=== PATIENT | male | born 1965 | race African-American/Black ===

== ENCOUNTER 2016-12-05 17:27 | Inpatient (IN) | payer OTHER ==
[2016-12-05] VITALS (14 sets, daily range): BP systolic 141–186; BP diastolic 92–118; PULSE 98–108; RESP 18–20; TEMP 97.8; O2SAT 97–99
[~2016-12-05] VITALS: Ht 180.3 cm; Wt 93.1 kg
[~2016-12-05 17:27] MED LIST: AMLO5 PO; Aspirin Chew PO; CARV12.5 PO; FURO1TAB62 PO; FURO20TA PO; LISI-515 PO; POTA-163 PO
--- NOTE | 2016-12-05 17:40 | PD ---
HPI Chief Complaint: Respiratory Symptoms Time Seen by Provider: 17:40 Travel History International Travel<30 days: No Contact w/Intl Traveler<30days: No Traveled to known affect area: No History of Present Illness HPI 51-year-old male with history of hypertension, crack cocaine abuse, cardiomegaly , presents to emergency department for evaluation of chest pain and worsening shortness of breath with ambulation. Patient states he cannot take 4 steps without having significant shortness of breath. Patient states that the pain comes and goes. It does not radiate anywhere. He denies a recent illnesses, fever, chills. Last time that he used cocaine was last evening. Nausea or vomiting. States he does have episodes of diaphoresis. Patient was recently hospitalized in October for elevated troponin and hypertensive urgency. He is noncompliant with medication, he has no other symptoms to report. PFSH Past Medical History Hx Anticoagulant Therapy: Yes (PT STATES DOES NOT TAKE EVERY DAY) Asthma: No Blood Disorders: No Heart Rhythm Problems: No Cancer: No Cardiovascular Problems: Yes High Cholesterol: No Chemotherapy: No Chest Pain: No Congestive Heart Failure: Yes COPD: Yes Cerebrovascular Accident: Yes (HX STROKE) Diabetes: Yes Diminished Hearing: No Endocrine: No Gastrointestinal Disorders: No Genitourinary: No Hypertension: Yes Immune Disorder: No Musculoskeletal: No Neurologic: No Psychiatric: Yes (DRUG ABUSE) Reproductive: No Respiratory: Yes Immunizations Current: No (UNKNOWN) Myocardial Infarction: No Radiation Therapy: No Past Surgical History AICD: No Arteriovenous Shunt: No Insulin Pump: No Joint Replacement: No Pacemaker: No Tonsillectomy: Yes Other Surgery: Yes (RIGHT WRIST FOR SPIDER BITE.) Social History Alcohol Use: Yes (4 LOCO LAST NIGHT) Tobacco Use: Yes (1/2 PPD) Substance Use: Yes (Cocaine and Marijuana ) Allergies-Medications (Allergen,Severity, Reaction): Coded Allergies: No Known Allergies (Verified , 10/17/16) Reported Meds & Prescriptions Reported Meds & Active Scripts Active Potassium Chloride ER (Potassium Chloride) 20 Meq Tab 20 Meq PO DAILY Furosemide 20 Mg Tab 20 Mg PO DAILY Lasix (Furosemide) 20 Mg Tab 20 Mg PO DAILY Lisinopril 20 Mg Tab 40 Mg PO DAILY 30 Days Coreg (Carvedilol) 12.5 Mg Tab 25 Mg PO Q12HR 30 Days [Aspirin Chew] 81 MG Chew 81 Mg PO DAILY 30 Days Norvasc (Amlodipine Besylate) 5 Mg Tab 5 Mg PO DAILY 30 Days Review of Systems Except as stated in HPI: all other systems reviewed are Neg Physical Exam Narrative GENERAL: Well-nourished male patient, lying in bed, no acute distress SKIN: Warm and dry. HEAD: Atraumatic. Normocephalic. EYES: Pupils equal and round. No scleral icterus. No injection or drainage. ENT: No nasal bleeding or discharge. Mucous membranes pink and moist. NECK: Trachea midline. No JVD. CARDIOVASCULAR: Elevated rate and rhythm. No murmur appreciated. RESPIRATORY: No accessory muscle use. Diminished. Breath sounds equal bilaterally. GASTROINTESTINAL: Abdomen soft, nondistended. Slight epigastric tenderness to palpation. Hepatic and splenic margins not palpable. MUSCULOSKELETAL: No obvious deformities. No clubbing. No cyanosis. No edema. NEUROLOGICAL: Awake and alert. No obvious cranial nerve deficits. Motor grossly within normal limits. Normal speech. PSYCHIATRIC: Appropriate mood and affect; insight and judgment normal. Data Data Last Documented VS Vital Signs Date Time Temp Pulse Resp B/P Pulse Ox O2 Delivery O2 Flow Rate FiO2 12/05/16 19:11 101 20 159/100 99 Room Air 12/05/16 17:32 97.8 Orders Electrocardiogram (12/05/16 17:35) B-Type Natriuretic Peptide (12/05/16 17:35) Ckmb (Isoenzyme) Profile (12/05/16 17:35) Complete Blood Count With Diff (12/05/16 17:35) Comprehensive Metabolic Panel (12/05/16 17:35) Magnesium (Mg) (12/05/16 17:35) Prothrombin Time / Inr (Pt) (12/05/16 17:35) Act Partial Throm Time (Ptt) (12/05/16 17:35) Troponin I (12/05/16 17:35) Lipase (12/05/16 17:35) Chest, Single Ap (12/05/16 17:35) Ecg Monitoring (12/05/16 17:35) Bilateral Bp Monitoring (12/05/16 17:35) Iv Access Insert/Monitor (12/05/16 17:35) Oximetry (12/05/16 17:35) Oxygen Administration (12/05/16 17:35) Aspirin Chew (Aspirin Chew) (12/05/16 17:45) Sodium Chloride 0.9% Flush (Ns Flush) (12/05/16 17:45) Sodium Chlor 0.9% 1000 Ml Inj (Ns 1000 M (12/05/16 17:45) Nitroglycerin 2% Oint (Nitroglycerin 2% (12/05/16 18:30) CKMB (12/05/16 17:40) CKMB% (12/05/16 17:40) Ct Pulmonary Angiogram (12/05/16 ) Iohexol 350 Inj (Omnipaque 350 Inj) (12/05/16 19:19) Furosemide Inj (Lasix Inj) (12/05/16 19:45) Nitroglycerin-Dextrose Inj (Nitroglyceri (12/05/16 19:45) Admit Order (Ed Use Only) (12/05/16 19:38) Consult Acetylene Burner (12/05/16 ) Labs Laboratory Tests Test 12/05/16 17:40 White Blood Count 9.5 TH/MM3 Red Blood Count 4.23 MIL/MM3 Hemoglobin 11.2 GM/DL Hematocrit 35.3 % Mean Corpuscular Volume 83.4 FL Mean Corpuscular Hemoglobin 26.6 PG Mean Corpuscular Hemoglobin 31.8 % Concent Red Cell Distribution Width 16.1 % Platelet Count 350 TH/MM3 Mean Platelet Volume 8.3 FL Neutrophils (%) (Auto) 76.5 % Lymphocytes (%) (Auto) 11.9 % Monocytes (%) (Auto) 9.3 % Eosinophils (%) (Auto) 1.4 % Basophils (%) (Auto) 0.9 % Neutrophils # (Auto) 7.3 TH/MM3 Lymphocytes # (Auto) 1.1 TH/MM3 Monocytes # (Auto) 0.9 TH/MM3 Eosinophils # (Auto) 0.1 TH/MM3 Basophils # (Auto) 0.1 TH/MM3 CBC Comment DIFF FINAL Differential Comment Prothrombin Time 11.8 SEC Prothromb Time International 1.1 RATIO Ratio Activated Partial 26.4 SEC Thromboplast Time Sodium Level 141 MEQ/L Potassium Level 4.3 MEQ/L Chloride Level 105 MEQ/L Carbon Dioxide Level 29.0 MEQ/L Anion Gap 7 MEQ/L Blood Urea Nitrogen 15 MG/DL Creatinine 1.37 MG/DL Estimat Glomerular Filtration 67 ML/MIN Rate Random Glucose 108 MG/DL Calcium Level 7.9 MG/DL Magnesium Level 2.2 MG/DL Total Bilirubin 0.9 MG/DL Aspartate Amino Transf 30 U/L (AST/SGOT) Alanine Aminotransferase 34 U/L (ALT/SGPT) Alkaline Phosphatase 87 U/L Total Creatine Kinase 626 U/L Creatine Kinase MB 10.1 NG/ML Creatine Kinase MB % 1.6 % Troponin I 0.34 NG/ML B-Type Natriuretic Peptide 1767 PG/ML Total Protein 5.8 GM/DL Albumin 2.4 GM/DL Lipase 60 U/L MDM Medical Decision Making Medical Screen Exam Complete: Yes Emergency Medical Condition: Yes Medical Record Reviewed: Yes Differential Diagnosis ACS versus vasospasm versus BNP versus pneumonia versus PE Narrative Course 51-year-old male presents to emergency department for evaluation. Patient appears without distress. Tachycardic and moderately hypertensive here in the emergency department. EKG is similar to recent. As reviewed by my attending. Patient is given aspirin and nitroglycerin paste here in the emergency department. Chest x-ray shows cardiomegaly without evidence of pulmonary edema or focal infiltrates. Laboratory Tests Test 12/05/16 17:40 White Blood Count 9.5 TH/MM3 Red Blood Count 4.23 MIL/MM3 Hemoglobin 11.2 GM/DL Hematocrit 35.3 % Mean Corpuscular Volume 83.4 FL Mean Corpuscular Hemoglobin 26.6 PG Mean Corpuscular Hemoglobin 31.8 % Concent Red Cell Distribution Width 16.1 % Platelet Count 350 TH/MM3 Mean Platelet Volume 8.3 FL Neutrophils (%) (Auto) 76.5 % Lymphocytes (%) (Auto) 11.9 % Monocytes (%) (Auto) 9.3 % Eosinophils (%) (Auto) 1.4 % Basophils (%) (Auto) 0.9 % Neutrophils # (Auto) 7.3 TH/MM3 Lymphocytes # (Auto) 1.1 TH/MM3 Monocytes # (Auto) 0.9 TH/MM3 Eosinophils # (Auto) 0.1 TH/MM3 Basophils # (Auto) 0.1 TH/MM3 CBC Comment DIFF FINAL Differential Comment Prothrombin Time 11.8 SEC Prothromb Time International 1.1 RATIO Ratio Activated Partial 26.4 SEC Thromboplast Time Sodium Level 141 MEQ/L Potassium Level 4.3 MEQ/L Chloride Level 105 MEQ/L Carbon Dioxide Level 29.0 MEQ/L Anion Gap 7 MEQ/L Blood Urea Nitrogen 15 MG/DL Creatinine 1.37 MG/DL Estimat Glomerular Filtration 67 ML/MIN Rate Random Glucose 108 MG/DL Calcium Level 7.9 MG/DL Magnesium Level 2.2 MG/DL Total Bilirubin 0.9 MG/DL Aspartate Amino Transf 30 U/L (AST/SGOT) Alanine Aminotransferase 34 U/L (ALT/SGPT) Alkaline Phosphatase 87 U/L Total Creatine Kinase 626 U/L Creatine Kinase MB 10.1 NG/ML Creatine Kinase MB % 1.6 % Troponin I 0.34 NG/ML B-Type Natriuretic Peptide 1767 PG/ML Total Protein 5.8 GM/DL Albumin 2.4 GM/DL Lipase 60 U/L Patient again has elevated troponin 0.34. BNP is 1767. Patient continues to have chest pain and short of breath. He also continues to be hypertensive. I discussed the patient with attending physician has also assessed him. She recommends nitroglycerin drip as well as Lasix. I have discussed the patient with resident physician director of recruitment and admissions. Patient will be admitted to the critical care unit. Diagnosis Primary Impression: Chest pain Qualified Code: R07.9 - Chest pain, unspecified type Additional Impressions: Elevated troponin CHF (congestive heart failure) Qualified Code: I50.9 - Acute on chronic congestive heart failure, unspecified congestive heart failure type Hypertensive urgency Cocaine abuse Admitting Information Admitting Physician Requests: Admit Condition: Stable Analia Lyons Dec 05, 2016 17:40
[2016-12-05] MEDS ORDERED: ASPIRIN 81 MG CHEW TAB PO ONE (17:45)
[2016-12-05] MEDS ORDERED: SODIUM CHLORIDE 0.9% FLUSH 5 ML FLUSH IVF PRN ×2 (17:45→21:30)
[2016-12-05] MEDS ORDERED: SODIUM CHLOR 0.9% 1000 ML INJ 1,000 ML IV ONE (17:45)
[2016-12-05 18:17] LABS: AUTOMATED NEUTROPHIL # 7.3 TH/MM3 (1.8-7.7); BASOPHIL # 0.1 TH/MM3 (0-0.2); BASOPHIL % 0.9 % (0.0-2.0); EOSINOPHIL # 0.1 TH/MM3 (0-0.4); EOSINOPHIL % 1.4 % (0.0-4.0); HEMATOCRIT 35.3 % (39.0-51.0); HEMO FLAGS DIFF FINAL; LYMPH % 11.9 % (9.0-44.0); LYMPHOCYTE # 1.1 TH/MM3 (1.0-4.8); MEAN CELL VOLUME 83.4 FL (80.0-100.0); MEAN CORPUSCULAR HEMOGLOBIN 26.6 PG (27.0-34.0); MEAN CORPUSCULAR HGB CONC 31.8 % (32.0-36.0); MONO % 9.3 % (0.0-8.0); NEUT % 76.5 % (16.0-70.0); PLATELET COUNT 350 TH/MM3 (150-450); RED BLOOD COUNT 4.23 MIL/MM3 (4.50-5.90); RED CELL DISTRIBUTION WIDTH 16.1 % (11.6-17.2); WHITE BLOOD COUNT 9.5 TH/MM3 (4.0-11.0)
[2016-12-05 18:24] LABS: APTT (PATIENT) 26.4 SEC (24.3-30.1); INTERNATIONAL NORMALIZED RATIO 1.1 RATIO; PROTHROMBIN TIME - PATIENT 11.8 SEC (9.8-11.6)
[2016-12-05] MEDS ORDERED: NITROGLYCERIN 2% OINT 1 GM PACKET TOPICAL ONE (18:30)
--- NOTE | 2016-12-05 18:34 | RADRPT ---
EXAM DATE/TIME: 12/05/2016 17:33 [facility] COMPARISON: CHEST SINGLE AP, October 11, 2016, 12:03. INDICATIONS : Chest pains. MEDICAL HISTORY : None. SURGICAL HISTORY : None. ENCOUNTER: Initial ACUITY: >1 year PAIN SCORE: 7/10 LOCATION: Left lower chest area. FINDINGS: The heart is enlarged with left ventricular configuration. The degree of cardiomegaly is stable from prior examination. The lungs are clear. No focal infiltrates seen. The central bronchopulmonary m arkings well delineated without evidence of peribronchial thickening. Both hemidiaphragms are well d elineated. No evidence pneumothorax. CONCLUSION: Compensated cardiomegaly without evidence of pulmonary edema or focal infiltrate. Toñito Kam MD on December 05, 2016 at 18:31 Board Certified Radiologist. This report was verified electronically.
[2016-12-05 18:35] LABS: ALT (GPT) 34 U/L (12-78); ANION GAP 7 MEQ/L (5-15); AST (GOT) 30 U/L (15-37); BLOOD UREA NITROGEN 15 MG/DL (7-18); CHLORIDE 105 MEQ/L (98-107); GLOMERULAR FILTRATION RATE 67 ML/MIN (>89); MAGNESIUM 2.2 MG/DL (1.5-2.5); POTASSIUM 4.3 MEQ/L (3.5-5.1); SODIUM (NA) 141 MEQ/L (136-145)
[2016-12-05 18:39] LABS: ALKALINE PHOSPHATASE 87 U/L (45-117); CREATINE KINASE 626 U/L (39-308); TOTAL BILIRUBIN ADULT 0.9 MG/DL (0.2-1.0)
[2016-12-05 18:51] LABS: CKMB 10.1 NG/ML (0.5-3.6)
[2016-12-05] MEDS ORDERED: IOHEXOL 350 MG/ML 10 ML VIAL (for RAD DIAG) IV ONE (19:19)
--- NOTE | 2016-12-05 19:41 | PD ---
Physical Exam Date Seen by Provider: Dec 05, 2016 Time Seen by Provider: 18:00 Narrative I, Dr. Reddy, have reviewed the advance practice practitioner's documentation and am in agreement, met with the patient face to face, made the diagnosis, and the medical decision making was done by me. *My assessment and Findings: Patient seen and evaluated with nurse practitioner , please see nurse practitioner note for more details. Patient is a cocaine user, previous history of poorly controlled hypertension, hypertensive emergency , here with chest pains, shortness of breath, and elevated blood pressure. EKG did not show any signs of acute ST-T changes but does show signs of LVH. Chest x-ray did not show signs of acute pulmonary edema but does show cardiomegaly. Nitroglycerin was given for chest pain and for blood pressure. Aspirin was given in the ER. His lab work returns showing significant elevation of BNP and Lasix was also given. On reevaluation, patient appears to be in mild respiratory distress. Pulmonary exam reveals decreased breath sounds at bases with no wheezes or crackles. Heart sounds S1, S2 with no gross murmurs or gallops. Laboratory Tests Test 12/05/16 17:40 Red Blood Count 4.23 MIL/MM3 (4.50-5.90) Hemoglobin 11.2 GM/DL (13.0-17.0) Hematocrit 35.3 % (39.0-51.0) Mean Corpuscular Hemoglobin 26.6 PG (27.0-34.0) Mean Corpuscular Hemoglobin 31.8 % Concent (32.0-36.0) Neutrophils (%) (Auto) 76.5 % (16.0-70.0) Monocytes (%) (Auto) 9.3 % (0.0-8.0) Prothrombin Time 11.8 SEC (9.8-11.6) Creatinine 1.37 MG/DL (0.60-1.30) Estimat Glomerular Filtration 67 ML/MIN (>89) Rate Random Glucose 108 MG/DL (74-106) Calcium Level 7.9 MG/DL (8.5-10.1) Total Creatine Kinase 626 U/L (39-308) Creatine Kinase MB 10.1 NG/ML (0.5-3.6) Troponin I 0.34 NG/ML (0.02-0.05) B-Type Natriuretic Peptide 1767 PG/ML (0-100) Total Protein 5.8 GM/DL (6.4-8.2) Albumin 2.4 GM/DL (3.4-5.0) Lipase 60 U/L (73-393) Last 24 hours Impressions Chest X-Ray 12/05/16 4555 Signed Impressions: Service Date/Time: Monday, December 05, 2016 17:33 - CONCLUSION: Compensated cardiomegaly without evidence of pulmonary edema or focal infiltrate. Toñito Kam MD At this point, case was discussed with family practice residents for admission. Nitroglycerin drip was initiated due to fairly elevated blood pressure and what appears to be a hypertensive emergency with heart failure symptoms and elevated troponins. Patient will be admitted to ICU. Risk Manager consult. Aggregate critical care time was 25 minutes. Time to perform other separately billable procedures was not included in the critical care time. My time did not include minutes spent treating any other patients simultaneously or on activities that did not directly contribute to the patient's treatment. The services I provided to this patient were to treat and/or prevent clinically significant deterioration that could result in: Worsening CHF, cardiopulmonary arrest, dysrhythmias, I provided critical care services requiring my management, as noted below: Chart data review, documentation time, medication orders and management, vital sign assessments/reviewing monitor data, ordering and reviewing lab tests, ordering and interpreting/reviewing x-rays and diagnostic studies, care of the patient and discussion of the patient with the admitting physicians. Data Data Last Documented VS Vital Signs Date Time Temp Pulse Resp B/P Pulse Ox O2 Delivery O2 Flow Rate FiO2 12/05/16 19:11 101 20 159/100 99 Room Air 12/05/16 17:32 97.8 Orders Electrocardiogram (12/05/16 17:35) B-Type Natriuretic Peptide (12/05/16 17:35) Ckmb (Isoenzyme) Profile (12/05/16 17:35) Complete Blood Count With Diff (12/05/16 17:35) Comprehensive Metabolic Panel (12/05/16 17:35) Magnesium (Mg) (12/05/16 17:35) Prothrombin Time / Inr (Pt) (12/05/16 17:35) Act Partial Throm Time (Ptt) (12/05/16 17:35) Troponin I (12/05/16 17:35) Lipase (12/05/16 17:35) Chest, Single Ap (12/05/16 17:35) Ecg Monitoring (12/05/16 17:35) Bilateral Bp Monitoring (12/05/16 17:35) Iv Access Insert/Monitor (12/05/16 17:35) Oximetry (12/05/16 17:35) Oxygen Administration (12/05/16 17:35) Aspirin Chew (Aspirin Chew) (12/05/16 17:45) Sodium Chloride 0.9% Flush (Ns Flush) (12/05/16 17:45) Sodium Chlor 0.9% 1000 Ml Inj (Ns 1000 M (12/05/16 17:45) Nitroglycerin 2% Oint (Nitroglycerin 2% (12/05/16 18:30) CKMB (12/05/16 17:40) CKMB% (12/05/16 17:40) Ct Pulmonary Angiogram (12/05/16 ) Iohexol 350 Inj (Omnipaque 350 Inj) (12/05/16 19:19) Furosemide Inj (Lasix Inj) (12/05/16 19:45) Nitroglycerin-Dextrose Inj (Nitroglyceri (12/05/16 19:45) Admit Order (Ed Use Only) (12/05/16 19:38) Consult Risk Manager (12/05/16 ) Labs Laboratory Tests Test 12/05/16 17:40 White Blood Count 9.5 TH/MM3 Red Blood Count 4.23 MIL/MM3 Hemoglobin 11.2 GM/DL Hematocrit 35.3 % Mean Corpuscular Volume 83.4 FL Mean Corpuscular Hemoglobin 26.6 PG Mean Corpuscular Hemoglobin 31.8 % Concent Red Cell Distribution Width 16.1 % Platelet Count 350 TH/MM3 Mean Platelet Volume 8.3 FL Neutrophils (%) (Auto) 76.5 % Lymphocytes (%) (Auto) 11.9 % Monocytes (%) (Auto) 9.3 % Eosinophils (%) (Auto) 1.4 % Basophils (%) (Auto) 0.9 % Neutrophils # (Auto) 7.3 TH/MM3 Lymphocytes # (Auto) 1.1 TH/MM3 Monocytes # (Auto) 0.9 TH/MM3 Eosinophils # (Auto) 0.1 TH/MM3 Basophils # (Auto) 0.1 TH/MM3 CBC Comment DIFF FINAL Differential Comment Prothrombin Time 11.8 SEC Prothromb Time International 1.1 RATIO Ratio Activated Partial 26.4 SEC Thromboplast Time Sodium Level 141 MEQ/L Potassium Level 4.3 MEQ/L Chloride Level 105 MEQ/L Carbon Dioxide Level 29.0 MEQ/L Anion Gap 7 MEQ/L Blood Urea Nitrogen 15 MG/DL Creatinine 1.37 MG/DL Estimat Glomerular Filtration 67 ML/MIN Rate Random Glucose 108 MG/DL Calcium Level 7.9 MG/DL Magnesium Level 2.2 MG/DL Total Bilirubin 0.9 MG/DL Aspartate Amino Transf 30 U/L (AST/SGOT) Alanine Aminotransferase 34 U/L (ALT/SGPT) Alkaline Phosphatase 87 U/L Total Creatine Kinase 626 U/L Creatine Kinase MB 10.1 NG/ML Creatine Kinase MB % 1.6 % Troponin I 0.34 NG/ML B-Type Natriuretic Peptide 1767 PG/ML Total Protein 5.8 GM/DL Albumin 2.4 GM/DL Lipase 60 U/L [facility] Medical Record Reviewed: Yes Supervised Visit with LIVIA: Yes Diagnosis Primary Impression: Hypertensive emergency Additional Impressions: CHF (congestive heart failure) Elevated troponin Admitting Information Admitting Physician Requests: Admit Condition: Stable Corona Reddy MD Dec 05, 2016 19:41
--- NOTE | 2016-12-05 19:43 | RADRPT ---
EXAM DATE/TIME: 12/05/2016 19:16 [facility] COMPARISON: CTA THORACIC ABDOMINAL AORTA W 3D RECON, October 16, 2015, 15:50. INDICATIONS : Short of breath with chest pressure. Recent cocaine use. IV CONTRAST: 99 cc Omnipaque 350 (iohexol) IV RADIATION DOSE: 18.32 CTDIvol (mGy) MEDICAL HISTORY : Congestive hearrt failure. Hypertension. Chronic obstructive pulmonary disease.CVA. Diabetes. SURGICAL HISTORY : Tonsillectomy. ENCOUNTER: Initial ACUITY: 1 week PAIN SCALE: 1/10 LOCATION: chest TECHNIQUE: Volumetric scanning of the chest was performed using a pulmonary embolism protocol MIP images were re constructed. Using automated exposure control and adjustment of the mA and/or kV according to patien t size, radiation dose was kept as low as reasonably achievable to obtain optimal diagnostic quality images. FINDINGS: The contrast in the superior vena cava is more dense than right atrium or pulmonary artery; this is s uboptimal contrast opacification of pulmonary arteries, but there is no contrast in the pulmonary vei ns or aorta. The lack of opacification will limit evaluation of the segmental and subsegmental pulmo nary arteries. PULMONARY ARTERIES: There is a subsegmental infiltrate in the lower lateral left lung along the major fissure. Mild smal l areas of consolidation in the perihilar region bilaterally. Pulmonary nodule lateral right midlung measures 8 mm. LUNGS: There is no consolidation or pneumothorax . No concerning pulmonary nodule is visualized. PLEURAE: Small right pleural effusion measuring 1.7 cm. MEDIASTINUM: There is good visualization of the great vessels of the middle mediastinum. No evidence of mediastin al or hilar adenopathy/mass. CONCLUSION: 1. Negative for pulmonary embolism in the main, left, and right pulmonary artery. There is insuffici ent opacification for evaluation of the smaller pulmonary vessels. 2. 8mm pulmonary nodule right midlung is unchanged from prior CT in October 2015. Given the size, F leischner [employer] recommends continued followup with one more CT scan in 12 months. 3. Small right pleural effusion and patchy areas of infiltrate in the perihilar and lower lateral lef t lung. Toñito Kam MD on December 05, 2016 at 19:36 Board Certified Radiologist. This report was verified electronically.
[2016-12-05] MEDS ORDERED: FUROSEMIDE 40 MG/4 ML VIAL IV PUSH ONE (19:45)
[2016-12-05] MEDS ORDERED: NITROGLYCERIN-DEXTROSE INJ 250 ML IV SCH (19:45)
[2016-12-05] MEDS ORDERED: LORazepam 2 MG/ML VIAL IV PUSH ONE (20:00)
--- NOTE | 2016-12-05 20:55 | HHI.HP ---
HPI Service Family Medicine Primary Care Physician Unknown Admission Diagnosis chest pain; htn urgency; chf; elevated troponin; crack cocaine use Diagnoses: International Travel<30 Days: No Contact w/Intl Traveler<30days: No Known Affected Area: No History of Present Illness History is limited because pt unable to stay awake during interview. Per nurse report, he presented with a chief complaint of 6/10 chest pain, which seemed to resolve with nitroglycerin and Ativan administration. Prior to that, per nurse, pt was uncooperative but able to stay awake until Ativan administration. During our interview pt is only able to tell me that his chief complaint is that his legs hurt, and that he came to hospital because he couldn't breathe. Patient cannot stay awake long enough to answer questions since receiving Ativan. Per chart review, pt is a 51-year-old male with a past medical history of hypertension, congestive heart failure, nonischemic cardiomyopathy with ejection fraction 30-35% and polysubstance abuse. Per chart review, patient previously presented to emergency department with troponin ranging between 0.61 - 0.85. Per ED provider note, pt is a 51-year-old male with history of hypertension, crack cocaine abuse, cardiomegaly, presents to emergency department for evaluation of chest pain and worsening shortness of breath with ambulation. Patient states he cannot take 4 steps without having significant shortness of breath. Patient states that the pain comes and goes. It does not radiate anywhere. He denies a recent illnesses, fever, chills. Last time that he used cocaine was last evening. States he does have episodes of diaphoresis. Patient was recently hospitalized in October for elevated troponin and hypertensive urgency. He is noncompliant with medication, he has no other symptoms to report. (Ivan Avalos MD R1) Review of Systems ROS Limitations: Clinical Condition, Altered Mental Status, Uncooperative ( Ivan Avalos MD R1) Past Family Social History Past Medical History From EMR, Diabetes Hypertension Congestive heart failure COPD Depression Polysubstance abuse Past Surgical History From chart review, Previous right wrist surgery Previous tonsillectomy Reported Medications Reported Meds & Active Scripts Active Potassium Chloride ER (Potassium Chloride) 20 Meq Tab 20 Meq PO DAILY Furosemide 20 Mg Tab 20 Mg PO DAILY Lasix (Furosemide) 20 Mg Tab 20 Mg PO DAILY Lisinopril 20 Mg Tab 40 Mg PO DAILY 30 Days Coreg (Carvedilol) 12.5 Mg Tab 25 Mg PO Q12HR 30 Days [Aspirin Chew] 81 MG Chew 81 Mg PO DAILY 30 Days Norvasc (Amlodipine Besylate) 5 Mg Tab 5 Mg PO DAILY 30 Days (Ivan Avalos MD R1) Allergies: Coded Allergies: No Known Allergies (Verified , 10/17/16) Active Ordered Medications Current Medications Medications (Trade) Dose Ordered Sig/Nayely Route Start Time Stop Time Status Last Admin (Nitroglycerin-Dextrose Inj) 250 ml @ 0 mls/hr TITRATE IV 12/05/16 19:45 12/05/16 20:10 (NS Flush) 2 ml BID IVF 12/06/16 09:00 (NS Flush) 2 ml UNSCH PRN IVF 12/05/16 21:30 (Lasix Inj) 40 mg BID@09,18 IVP 12/06/16 09:00 (KCl) 20 meq BID PO 12/06/16 09:00 (Heparin Inj) 5,000 units Q8H SQ 12/05/16 22:00 Lorazepam 1 mg 1 mg Q4H PRN IV PUSH 12/05/16 22:00 Vancomycin HCl 1000 mg/Sodium Chloride 250 ml @ 250 mls/hr Q12H IV 12/05/16 23:00 Pharmacy Profile Note 0 ml @ 0 mls/hr UNSCH OTHER 12/05/16 22:00 (Zosyn 3.375 Gm Premix) 50 ml @ 100 mls/hr Q6H IV 12/05/16 22:00 (Norvasc) 5 mg DAILY PO 12/06/16 09:00 (Coreg) 25 mg Q12HR PO 12/06/16 09:00 (Prinivil) 40 mg DAILY PO 12/06/16 09:00 UNV Non-Formulary Medication 81 mg DAILY PO 12/06/16 09:00 UNV Family History Unable to obtain secondary to altered mental status, somnolence Social History From ED provider note, Alcohol Use: Yes (4 LOCO LAST NIGHT) Tobacco Use: Yes (1/2 PPD) Substance Use: Yes (CRACK, +COCAINE/ ONLY MJ) (Ivan Avalos MD R1) Physical Exam Vital Signs Vital Signs Date Time Temp Pulse Resp B/P Pulse Ox O2 Delivery O2 Flow Rate FiO2 12/05/16 20:05 104 20 177/118 97 Room Air 12/05/16 19:11 101 20 159/100 99 Room Air 12/05/16 18:18 100 20 159/100 98 Room Air 12/05/16 17:39 97 Room Air 12/05/16 17:39 20 98 Room Air 12/05/16 17:35 106 20 98 Room Air 12/05/16 17:35 102 20 153/110 97 Room Air 157/116 12/05/16 17:32 97.8 102 18 153/110 97 Physical Exam GENERAL: This is a well-nourished, well-developed patient, who is alternating between lying down in left lateral decubitous position rocking in discomfort, standing up to urinate, and sleeping comfortably, all with his eyes closed. SKIN: Scabs and tattoos on extremities BL. Cool and dry. well healing scab posterior of right shoulder. Right medial thigh erythema, tenderness, induration , warmth. HEAD: Atraumatic. Normocephalic. No temporal or scalp tenderness. EYES: Pupils equal round and reactive. Extraocular motions intact. No scleral icterus. No injection or drainage. ENT: MMM. Nose without bleeding, purulent drainage. Airway patent. NECK: Trachea midline. + JVD but no lymphadenopathy. Supple, nontender, no meningeal signs. CARDIOVASCULAR: Tachycardic rate and rhythm with grade 2 to 3/6 systolic murmur. RESPIRATORY: Difficult to assess because of patient's transmitted upper airway sounds, but lungs mostly Clear to auscultation with some decreased breath sounds at the bases. GASTROINTESTINAL: Abdomen soft, some epigastric tenderness, mildly distended. No hepato-splenomegaly noted, or palpable masses. No guarding. MUSCULOSKELETAL: Extremities without clubbing, cyanosis, but + 2+ pitting edema to knees BL. No joint tenderness, effusion. No calf tenderness. No foot ulcers. NEUROLOGICAL: Somnolent, momentarily arousal to his name. Cranial nerves II through XII grossly intact. Motor and sensory grossly within normal limits. Five out of 5 muscle strength in all muscle groups. Normal speech. Laboratory Laboratory Tests Test 12/05/16 17:40 White Blood Count 9.5 Red Blood Count 4.23 Hemoglobin 11.2 Hematocrit 35.3 Mean Corpuscular Volume 83.4 Mean Corpuscular Hemoglobin 26.6 Mean Corpuscular Hemoglobin 31.8 Concent Red Cell Distribution Width 16.1 Platelet Count 350 Mean Platelet Volume 8.3 Neutrophils (%) (Auto) 76.5 Lymphocytes (%) (Auto) 11.9 Monocytes (%) (Auto) 9.3 Eosinophils (%) (Auto) 1.4 Basophils (%) (Auto) 0.9 Neutrophils # (Auto) 7.3 Lymphocytes # (Auto) 1.1 Monocytes # (Auto) 0.9 Eosinophils # (Auto) 0.1 Basophils # (Auto) 0.1 CBC Comment DIFF FINAL Differential Comment Prothrombin Time 11.8 Prothromb Time International 1.1 Ratio Activated Partial 26.4 Thromboplast Time Sodium Level 141 Potassium Level 4.3 Chloride Level 105 Carbon Dioxide Level 29.0 Anion Gap 7 Blood Urea Nitrogen 15 Creatinine 1.37 Estimat Glomerular Filtration 67 Rate Random Glucose 108 Calcium Level 7.9 Magnesium Level 2.2 Total Bilirubin 0.9 Aspartate Amino Transf 30 (AST/SGOT) Alanine Aminotransferase 34 (ALT/SGPT) Alkaline Phosphatase 87 Total Creatine Kinase 626 Creatine Kinase MB 10.1 Creatine Kinase MB % 1.6 Troponin I 0.34 B-Type Natriuretic Peptide 1767 Total Protein 5.8 Albumin 2.4 Lipase 60 (Ivan Avalos MD R1) Result Diagram: 12/05/16 1740 12/05/16 1740 Imaging Last Impressions Chest X-Ray 12/05/16 1735 Signed Impressions: Service Date/Time: Monday, December 05, 2016 17:33 - CONCLUSION: Compensated cardiomegaly without evidence of pulmonary edema or focal infiltrate. Toñito Kam MD CT Angiography 12/05/16 0000 Signed Impressions: Service Date/Time: Monday, December 05, 2016 19:16 - CONCLUSION: 1. Negative for pulmonary embolism in the main, left, and right pulmonary artery. There is insufficient opacification for evaluation of the smaller pulmonary vessels. 2. 8mm pulmonary nodule right midlung is unchanged from prior CT in October 2015. Given the size, Fleischner society recommends continued followup with one more CT scan in 12 months. 3. Small right pleural effusion and patchy areas of infiltrate in the perihilar and lower lateral left lung. Toñito Kam MD Course In emergency department, patient had CMP, CBC, CK MB, BNP, EKG, nitroglycerin topical, CT pulmonary angiogram with IV contrast, nitroglycerin drip, Lasix 40 mg IV push 1, Ativan 1 mg IV push 1, silversmith apprentice was consulted, but after discussion with silversmith apprentice, canceled silversmith apprentice consultation. (Ivan Avalos MD R1) Assessment and Plan Assessment and Plan Per chart review, pt is a 51-year-old male with a past medical history of hypertension, congestive heart failure, nonischemic cardiomyopathy with ejection fraction 30-35% and polysubstance abuse, including cocaine, who presents to emergency department for evaluation of chest pain and worsening shortness of breath with ambulation. Patient found to have BNP of 1767, imaging concerning for acute on chronic CHF exacerbation versus pneumonia, hypertensive urgency with a blood pressure of 180s over 120s on exam, elevated troponin to 0.34, which is lower than his troponin from previous admissions. Patient also found to have cellulitis on the right medial thigh. Patient is admitted for IV diuresis, blood pressure control, and antibiotics. Code Status Full code Discussed Condition With Patient seen and discussed with Dr. Julisa Mills and Dr. Leigh. (Ivan Avalos MD R1) Attending Attestation THIS CASE WAS DISCUSSED WITH THE RESIDENT PHYSICIANS. I HAVE REVIEWED THE RECORD AND AGREE WITH THE ABOVE NOTE AND PLAN OF CARE WAS DISCUSSED. I HAVE AUTHORIZED THE ORDER FOR ADMISSION TO AN IN-PATIENT STATUS. (Pierce Jay MD) Problem List: (1) CHF (congestive heart failure) Status: Acute Plan: Patient presents with dyspnea on exertion with exam, labs, and imaging most consistent with acute on chronic congestive heart failure given 2+ lower extremity edema to knees bilaterally, BNP of 1767, small right pleural effusion seen on CTA. Admit to inpatient ACS rule out with every 6 hours EKG, troponin, CK-MB. Initial EKG showed LVH and left atrial enlargement. Initial troponin 0.34. Echocardiogram (last echo from 08/2016 showed ejection fraction of 30-35%, diffuse hypokinesis, and wall thickness increased in a pattern of moderate LVH) Monitor vital signs Oxygen as needed Heart healthy diet with fluid and salt restriction with less than 1.5 L of fluid and less than 2 g of salt. 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 Continue nitroglycerin drip Wean as tolerated Continue home medications as below (3) Pneumonia Status: Acute Plan: Patient with possible pneumonia seen on CTA, which showed patchy areas of infiltrate in the perihilar and lower lateral left lung. Will treat for healthcare associated pneumonia because of his last hospitalization in October as well as an aspiration pneumonia given his polysubstance abuse as well as possible community acquired pneumonia. Vancomycin IV Vancomycin pharmacy consult Zosyn 3.375 g IV every 6 hours --Azithromycin 500mg po qd Lactic acid sepsis protocol No IV fluids given his volume overloaded status Blood culture (4) Cellulitis Status: Acute Plan: Cellulitis of right medial thigh with erythema, warmth, induration, tenderness. See plan above for pneumonia including antibiotic treatment with vancomycin and Zosyn Warm compress to right medial thigh (5) JEN (acute kidney injury) Status: Acute Plan: Patient presents with a creatinine of 1.37. Questionable baseline between 1 - 1.3. Diuresis as above with fluid restriction as above Continue to monitor with BMP every morning (6) Altered mental status, unspecified Status: Acute Plan: Patient with history of polysubstance abuse currently with altered mental status on exam after receiving Ativan for chest pain in the context of cocaine use. Urine drug screen Alcohol/ethanol level ABG (7) Chest pain Status: Resolved Plan: Per nurse report, patient presented to the emergency department with 6 out of 10 chest pain, which resolved with nitroglycerin and Ativan. ACS rule out with every 6 hours EKG, troponin, CK-MB (8) Elevated troponin Status: Chronic Plan: Per chart review, patient previously presented to emergency department with troponin ranging between 0.61 - 0.85. Initial troponin this visit, 0.34. ACS rule out as above (9) DM (diabetes mellitus) Status: Chronic Plan: Per chart review, patient with history of diabetes. Low-dose sliding scale insulin with glucose monitoring (10) HTN (hypertension) Status: Chronic Plan: Continue patient's home medications. Amlodipine 5 mg by mouth daily Carvedilol 25 mg by mouth every 12 hours Lasix converted from by mouth to IV as above Lisinopril 40 mg by mouth daily (11) COPD (chronic obstructive pulmonary disease) Status: Chronic Plan: Per chart review, patient with history of COPD. DuoNeb's every 4 hours while awake (12) Cocaine abuse Status: Chronic Plan: Patient received Ativan and nitroglycerin for chest pain in the context of cocaine use. Ativan 1 mg IV every 4 hours when necessary for agitation Continuing home medication of carvedilol as it is a nonselective beta nathan/ alpha-1 nathan Case management consult (13) Alcohol abuse Status: Chronic Plan: Per chart review, patient has history of alcohol abuse. Low threshold to start CIWA protocol. Withheld at this time to minimize oversedation. Thiamine, folate, multivitamin Case management consult Alcohol level (14) Nutrition, metabolism, and development symptoms Status: Acute Plan: Fluids: Fluid restrict given history of CHF with fluid overloaded status on exam Electrolytes: Monitor and replete as necessary Nutrition: Heart healthy diet with fluid restriction less than 1.5 L and salt restriction less than 2 g GI prophylaxis: Not currently indicated at this time (15) No contraindication to deep vein thrombosis (DVT) prophylaxis Status: Acute Plan: Bilateral knee-high SCDs/TEDs No chemical anticoagulation at this time given high fall risk and patient is moving all extremities well (Ivan Avalos MD R1) Physician Certification 2 Midnight Certification Type: Admission for Inpatient Services Order for Inpatient Services The services are ordered in accordance with Medicare regulations or non- Medicare payer requirements, as applicable. In the case of services not specified as inpatient-only, they are appropriately provided as inpatient services in accordance with the 2-midnight benchmark. Estimated LOS (days): 2 2 days is the estimated time the patient will need to remain in the hospital, assuming treatment plan goals are met and no additional complications. Post-Hospital Plan: Not yet determined (Ivan Avalos MD R1) Problem Qualifiers (1) CHF (congestive heart failure): Qualified Code: I50.9 - Acute on chronic congestive heart failure, unspecified congestive heart failure type (2) Pneumonia: Qualified Code: J18.1 - Pneumonia of left lower lobe due to infectious organism (3) Cellulitis: Qualified Code: L03.115 - Cellulitis of right lower extremity (4) Chest pain: Qualified Code: R07.9 - Chest pain, unspecified type Ivan Avalos MD R1 Dec 05, 2016 20:55 Pierce Jay MD Dec 06, 2016 13:07
[2016-12-05] MEDS ORDERED: HEPARIN SODIUM - SQ 10,000 UNITS/ML VIAL SQ SCH (22:00)
[2016-12-05] MEDS ORDERED: LORazepam 2 MG/ML VIAL IV PUSH PRN (22:00)
[2016-12-05] MEDS ORDERED: Vancomycin Consult Pharmacy 1 EA OTHER SCH (22:00)
[2016-12-05] MEDS: PIPERACIL-TAZO 3.375 GM PREMIX 50 ML IV SCH (22:28)
[2016-12-05] MEDS ORDERED: GLUCAGON 1 MG/ML VIAL OTHER PRN (22:30)
[2016-12-05] MEDS ORDERED: DEXTROSE 50% IN WATER 50 ML VIAL(D50) IV PUSH PRN (22:30)
[2016-12-05 22:48] LABS: AMPHETAMINE, URINE NEG (NEG); BARBITURATES, URINE NEG (NEG); COCAINE, URINE POS (NEG)
[2016-12-05] MEDS: VANCOMYCIN INJ 1,000 MG in SODIUM CHLOR 0.9% 250 ML INJ 250 ML IV SCH (23:00)
[2016-12-05] MEDS ORDERED: RESP: ALBUTEROL 2.5 MG/IPRATROPIUM 0.5 MG NEB (PRN) ONE (23:27)
[2016-12-05] MEDS: RESP: ALBUTEROL 2.5 MG/IPRATROPIUM 0.5 MG NEB (SCH) NEB (23:31)
[2016-12-06] VITALS (28 sets, daily range): BP systolic 121–191; BP diastolic 73–142; PULSE 84–108; RESP 16–22; TEMP 97.1–98.2; O2SAT 90–99
[2016-12-06 00:09] LABS: BLOOD GAS BASE EXCESS 2.2 mmol/L (-2-2); BLOOD GAS CARBOXYHEMOGLOBIN 3.3 % (0-4); BLOOD GAS HCO3 26 mmol/L (22-26); BLOOD GAS METHEMOGLOBIN 1.7 % (0-2); BLOOD GAS O2 HGB SATURATION 81 % (90-100); BLOOD GAS OXYGEN CONTENT 13.6 Vol % (12.0-20.0); BLOOD GAS PCO2 38 mmHg (38-42); BLOOD GAS PO2 51 mmHG (61-120); BLOOD GAS TOTAL HGB 11.9 G/DL (12.0-16.0); CRITICAL VALUE YES; OXYGEN DEVICE RA; TEMP CORR TO 98.6
[2016-12-06 00:10] LABS: DRAW SITE RT BRACHIAL; FIO2 21 %; NUMBER OF ARTERIAL PUNCTURES 1; STAT YES
[2016-12-06 00:51] LABS: CKMB 7.4 NG/ML (0.5-3.6)
[2016-12-06] MEDS: PIPERACIL-TAZO 3.375 GM PREMIX 50 ML IV SCH ×4 (04:00→21:37)
[2016-12-06 06:38] LABS: MAGNESIUM 2.2 MG/DL (1.5-2.5); POTASSIUM 4.1 MEQ/L (3.5-5.1)
[2016-12-06 06:51] LABS: CKMB 4.9 NG/ML (0.5-3.6)
[2016-12-06] MEDS: INSULIN ASPART SUPPLEMENTAL SCALE SQ SCH ×4 (07:00→20:01)
[2016-12-06] MEDS: RESP: ALBUTEROL 2.5 MG/IPRATROPIUM 0.5 MG NEB (SCH) NEB ×4 (07:24→19:09)
[2016-12-06] MEDS: ASPIRIN 81 MG CHEW TAB PO SCH (08:30)
[2016-12-06] MEDS: FOLIC ACID 1 MG TAB PO SCH (08:30)
[2016-12-06] MEDS: THIAMINE HCL 100 MG TAB PO SCH (08:30)
[2016-12-06] MEDS: CARVEDILOL 12.5 MG TAB PO SCH ×2 (08:30→19:58)
[2016-12-06] MEDS: MULTIVITAMIN TAB PO SCH (08:30)
[2016-12-06] MEDS: POTASSIUM CHLORIDE 20 MEQ CONTROLLED RELEASE TAB PO SCH ×2 (08:30→19:58)
[2016-12-06] MEDS: LISINOPRIL 20 MG TAB PO SCH (08:30)
[2016-12-06] MEDS: FUROSEMIDE 40 MG/4 ML VIAL IVP SCH ×2 (08:31→17:49)
[2016-12-06] MEDS: SODIUM CHLORIDE 0.9% FLUSH 5 ML FLUSH IVF SCH ×2 (08:31→19:59)
[2016-12-06] MEDS ORDERED: POTASSIUM CHLORIDE 20 MEQ CONTROLLED RELEASE TAB PO SCH (09:00)
[2016-12-06] MEDS ORDERED: amLODIPine BESYLATE 5 MG TAB PO SCH (09:00)
[2016-12-06] MEDS ORDERED: AZITHROMYCIN 250 MG TAB PO SCH (09:00)
[2016-12-06] MEDS ORDERED: ASPIRIN 81 MG PO SCH (09:00)
[2016-12-06] MEDS ORDERED: LORazepam 1 MG TAB PO PRN (09:30)
[2016-12-06] MEDS ORDERED: hydrALAZINE HCL 20 MG/ML VIAL IV PRN (09:30)
[2016-12-06] MEDS ORDERED: FLUMAZENIL 0.5 MG/5 ML VIAL IV PUSH PRN (09:30)
[2016-12-06] MEDS ORDERED: LORazepam 2 MG/ML VIAL IV PUSH PRN ×3 (09:30)
[2016-12-06] MEDS ORDERED: amLODIPine BESYLATE 5 MG TAB PO ONE (09:30)
[2016-12-06] MEDS ORDERED: LORazepam 2 MG TAB PO PRN (09:30)
[2016-12-06] MEDS: VANCOMYCIN INJ 1,000 MG in SODIUM CHLOR 0.9% 250 ML INJ 250 ML IV SCH ×2 (10:40→22:18)
[2016-12-06] MEDS: LORazepam 2 MG/ML VIAL IV PUSH PRN ×2 (11:42→22:10)
--- NOTE | 2016-12-06 13:07 | HHI.FPPN ---
Subjective Remarks No acute events overnight, patient this morning states that he feels "back to normal" and denies symptoms such as shortness of breath or chest pain or pressure. He does complain of a headache this morning. He remains significantly sluggish and lethargic during this morning's discussion and requires stimulation in order to continue the conversation. He was eating his breakfast as well, taking several bites and falling asleep before waking up to continue eating. Per nursing, there were no acute events overnight with no episodes of chest pain/pressure or palpitations, however he is a somewhat difficult patient due to agitation and he is argumentative when awake. In summary this is a 51-year-old male who presented to the emergency department with chief complaint of chest pain/pressure and shortness of breath. He has a known history of polysubstance abuse including crack cocaine as well as multiple visits to the emergency department for chest pain. He was evaluated in the emergency department and was noted to have an elevated troponin of 0.34 ( previously was is elevated at 0.6) as well as a BNP of 1767. His urine tox screen was positive for cocaine as well. He also had a chest x-ray performed that showed cardiomegaly with no evidence of infiltrate or effusion. A CT angiography of the chest was negative for pulmonary embolism but did show a stable 8 mm pulmonary nodule in the right midlung as well as a small right pleural effusion with patchy areas of infiltrate in the perihilar and lower lateral left lung. His blood pressure was severely elevated on arrival at 153/110 and went as high as 186/118. He was started on a nitroglycerin drip at that time He was admitted for further treatment for hypertensive urgency as well as evaluation for possible ACS versus CHF exacerbation versus pneumonia Past Medical History From EMR, Diabetes Hypertension Congestive heart failure COPD Depression Polysubstance abuse Past Surgical History From chart review, Previous right wrist surgery Previous tonsillectomy Objective Vitals Vital Signs Date Time Temp Pulse Resp B/P Pulse Ox O2 Delivery O2 Flow Rate FiO2 12/06/16 12:03 87 12/06/16 11:53 97.6 91 20 121/73 92 12/06/16 11:53 91 12/06/16 11:18 90 12/06/16 10:16 90 12/06/16 09:00 92 12/06/16 08:30 106 12/06/16 08:30 97.1 106 20 155/98 99 12/06/16 07:30 96 Nasal Cannula 4.00 12/06/16 06:00 108 12/06/16 05:00 106 12/06/16 04:25 98.2 108 16 157/99 97 12/06/16 04:00 106 12/06/16 03:00 106 12/06/16 02:28 98.1 105 16 185/142 95 12/06/16 02:18 97.3 108 16 191/131 95 12/06/16 01:28 104 20 173/104 98 12/05/16 23:52 98 Nasal Cannula 6 12/05/16 23:40 97 Nasal Cannula 5.00 12/05/16 23:25 108 20 141/92 98 Nasal Cannula 2 12/05/16 22:48 108 20 166/105 98 Room Air 12/05/16 22:35 104 20 158/114 98 Room Air 12/05/16 22:21 106 20 167/107 98 Room Air 12/05/16 21:37 101 20 156/97 97 Room Air 12/05/16 21:21 108 18 186/114 97 Room Air 12/05/16 20:41 98 18 160/118 99 Room Air 12/05/16 20:05 104 20 177/118 97 Room Air 12/05/16 19:11 101 20 159/100 99 Room Air 12/05/16 18:18 100 20 159/100 98 Room Air 12/05/16 17:39 97 Room Air 12/05/16 17:39 20 98 Room Air 12/05/16 17:35 106 20 98 Room Air 12/05/16 17:35 102 20 153/110 97 Room Air 157/116 12/05/16 17:32 97.8 102 18 153/110 97 I/O 12/05/16 12/05/16 12/05/16 12/06/16 12/06/16 12/06/16 07:00 15:00 23:00 07:00 15:00 23:00 Intake Total 480 ml Output Total 2700 ml 1000 ml Balance -2700 ml -520 ml Intake Oral 480 ml Output Urine Total 2700 ml 1000 ml # Voids 2 Result Diagram: 12/05/16 1740 12/06/16 0557 Imaging Last 48 hours Impressions Chest X-Ray 12/05/16 1735 Signed Impressions: Service Date/Time: Monday, December 05, 2016 17:33 - CONCLUSION: Compensated cardiomegaly without evidence of pulmonary edema or focal infiltrate. Toñito Kam MD CT Angiography 12/05/16 0000 Signed Impressions: Service Date/Time: Monday, December 05, 2016 19:16 - CONCLUSION: 1. Negative for pulmonary embolism in the main, left, and right pulmonary artery. There is insufficient opacification for evaluation of the smaller pulmonary vessels. 2. 8mm pulmonary nodule right midlung is unchanged from prior CT in October 2015. Given the size, Fleischner society recommends continued followup with one more CT scan in 12 months. 3. Small right pleural effusion and patchy areas of infiltrate in the perihilar and lower lateral left lung. Toñito Kam MD Objective Remarks GENERAL: Somewhat disheveled Afro-[place] male, sitting up in bed and in no obvious distress. He is significantly lethargic and difficult to understand due to mumbling. Falls asleep multiple times during discussion this morning. Requires a lot of stimulation in order to stay focused on the conversation. SKIN: Scabs and tattoos on extremities BL. Cool and dry. well healing scab posterior of right shoulder. Right distal medial thigh with 2 cm x 4 cm area of erythema that is tender to palpation and indurated, area does feel warm to the touch, no fluctuance palpated. HEAD: Atraumatic. Normocephalic. EYES: Pupils equal round and reactive. ENT: MMM. Nose without bleeding, purulent drainage. Airway patent. NECK: Trachea midline. + JVD but no lymphadenopathy. Supple, nontender, no meningeal signs. CARDIOVASCULAR: Tachycardic rate and rhythm with grade 2/6 systolic murmur. RESPIRATORY: Mostly clear to auscultation with scattered wheezes in bilateral bases. No obvious crackles or rhonchi GASTROINTESTINAL: Abdomen soft, nontender, nondistended MUSCULOSKELETAL: Extremities without clubbing, cyanosis, no obvious edema. No calf tenderness. No foot ulcers. NEUROLOGICAL: Somnolent, momentarily arousal to his name. Garbled/mumbled speech A/P Assessment and Plan Per chart review, pt is a 51-year-old male with a past medical history of hypertension, congestive heart failure, nonischemic cardiomyopathy with ejection fraction 30-35% and polysubstance abuse, including cocaine, who presents to emergency department for evaluation of chest pain and worsening shortness of breath with ambulation. Patient found to have BNP of 1767, imaging concerning for acute on chronic CHF exacerbation versus pneumonia, hypertensive urgency with a blood pressure of 180s over 120s on exam, elevated troponin to 0.34, which is lower than his troponin from previous admissions. Patient also found to have cellulitis on the right medial thigh. Patient is admitted for IV diuresis, blood pressure control, and antibiotics. Problem List: (1) Hypertensive urgency Status: Acute Plan: Patient started on a nitroglycerin drip in the emergency department and continues on that this morning Home medications were restarted this morning and will be titrated as below: Amlodipine increased from 5 mg to 10 mg today Carvedilol 25 mg twice a day Lisinopril 40 mg by mouth daily Hydrochlorothiazide 12.5 mg daily added today Patient also being diuresed with Lasix 40 mg IV twice a day given symptoms of congestive heart failure Blood pressure remains elevated, if changes above do not achieve blood pressure goal, consider starting hydralazine scheduled 3 times a day (2) CHF (congestive heart failure) Status: Acute Plan: Likely secondary to hypertensive urgency and recent cocaine use associated with chest pain BNP elevated at 1767 Echocardiogram ordered Diuresis with Lasix 40 mg IV twice a day Monitor is/os with Saenz catheter Daily fluid restriction of 1.5 L Low-salt diet/heart healthy diet ACS workup with constant/chronic elevation of troponin at 0.35 No acute EKG changes or events on telemetry Continue medications including carvedilol, lisinopril, and Lasix Supplemental oxygen as needed and wean as tolerated (3) Pneumonia Status: Acute Plan: Patient with clinical symptoms including shortness of breath along with pulmonary infiltrate found on CT No systemic symptoms such as fevers or leukocytosis Treatment currently with broad-spectrum antibiotics to cover for possible healthcare associated pneumonia as patient has been in the hospital several times over the last 3 months - Vancomycin - Zosyn - Azithromycin Blood cultures ordered and pending Supplemental oxygen as needed and wean as tolerated Duo nebs breathing treatments as needed every 4 hours (4) Cellulitis Status: Acute Plan: Cellulitis with erythema and induration of distal right medial thigh No obvious area of fluctuance to be drained Blood cultures have been drawn and are pending Warm compresses to the right thigh Continue antibiotic management as above for pneumonia (5) JEN (acute kidney injury) Status: Acute Plan: Patient presents with a creatinine of 1.37 on arrival Renal function improved with a creatinine of 1.28 with diuresis - Continue diuresis as above - Avoid IV fluids due to volume status of overload - Avoid nephrotoxic agents (6) Altered mental status, unspecified Status: Acute Plan: Patient with history of polysubstance abuse currently with altered mental status on exam after receiving Ativan for chest pain in the context of cocaine use. Urine drug screen Alcohol/ethanol level [facility] protocol ordered (7) Elevated troponin Status: Chronic Plan: Per chart review, patient previously presented to emergency department with troponin ranging between 0.61 - 0.85. Initial troponin this visit, 0.34 and trend was stable ACS rule out negative for active ischemia (8) DM (diabetes mellitus) Status: Chronic Plan: Per chart review, patient with history of diabetes. Low-dose sliding scale insulin with glucose monitoring (9) COPD (chronic obstructive pulmonary disease) Status: Chronic Plan: Per chart review, patient with history of COPD. DuoNeb's every 4 hours while awake (10) Cocaine abuse Status: Chronic Plan: Patient received Ativan and nitroglycerin for chest pain in the context of cocaine use. Ativan 1 mg IV every 4 hours when necessary for agitation Continuing home medication of carvedilol as it is a nonselective beta nathan/ alpha-1 nathan Case management consult (11) Alcohol abuse Status: Chronic Plan: Per chart review, patient has history of alcohol abuse. Ethyl alcohol level 4 on arrival - Started on [facility] protocol. Thiamine, folate, multivitamin Case management consult (12) Nutrition, metabolism, and development symptoms Status: Acute Plan: Fluids: Fluid restrict given history of CHF with fluid overloaded status on exam Electrolytes: Monitor and replete as necessary Nutrition: Heart healthy diet with fluid restriction less than 1.5 L and salt restriction less than 2 g GI prophylaxis: Not currently indicated at this time (13) No contraindication to deep vein thrombosis (DVT) prophylaxis Status: Acute Plan: Bilateral knee-high SCDs/TEDs No chemical anticoagulation at this time given high fall risk and patient is moving all extremities well Problem Qualifiers (1) CHF (congestive heart failure): Qualified Code: I50.9 - Acute on chronic congestive heart failure, unspecified congestive heart failure type (2) Pneumonia: Qualified Code: J18.1 - Pneumonia of left lower lobe due to infectious organism (3) Cellulitis: Qualified Code: L03.115 - Cellulitis of right lower extremity Pierce Jay MD Dec 06, 2016 13:07
--- NOTE | 2016-12-06 13:12 | EKG ---
Date Performed: 12/05/2016 Time Performed: 23:46:53 PTAGE: 51 years EKG: SINUS TACHYCARDIA WITH OCCASIONAL VENTRICULAR PREMATURE COMPLEXES LEFT ATRIAL ENLARGEMENT L EFT ANTERIOR FASCICULAR BLOCK LEFT VENTRICULAR HYPERTROPHY AND ST-T CHANGE ABNORMAL ECG Compared to p rior tracing no significant change PREVIOUS TRACING : 12/05/2016 17.38 DOCTOR: French Arcos Interpretating Date/Time 12/06/2016 13:10:00
--- NOTE | 2016-12-06 13:12 | EKG ---
Date Performed: 12/05/2016 Time Performed: 17:38:12 PTAGE: 51 years EKG: SINUS TACHYCARDIA WITH OCCASIONAL VENTRICULAR PREMATURE COMPLEXES LEFT ATRIAL ENLARGEMENT M ARKED LEFT AXIS DEVIATION LEFT VENTRICULAR HYPERTROPHY AND ST-T CHANGE ABNORMAL ECG Compared to prior tracing no significant change PREVIOUS TRACING : 10/18/2016 04.42 DOCTOR: French Arcos Interpretating Date/Time 12/06/2016 13:10:08
[2016-12-06] MEDS: HYDROCHLOROTHIAZIDE 12.5 MG CAP PO SCH (13:14)
--- NOTE | 2016-12-06 17:10 | EC ---
Study Study Date:12/06/2016 STUDY CONCLUSIONS SUMMARY - Left ventricle: The cavity size was moderately dilated. Wall thickness was increased in a pattern of moderate LVH. Systolic function was moderately reduced. The estimated ejection fraction was 40%. Wall motion was normal; there were no regional wall motion abnormalities. - Aortic valve: Trace regurgitation. - Aortic root: The aortic root was moderately dilated. - Mitral valve: Mild regurgitation. - Left atrium: The atrium was mildly to moderately dilated. - Right ventricle: The cavity size was moderately dilated. Wall thickness was normal. - Right atrium: The atrium was dilated. - Tricuspid valve: Moderate regurgitation. - Pulmonary arteries: Systolic pressure was severely increased. PA peak pressure: 80mm Hg (S). If LV function is below 40, please consider prescribing an ACEI or ARB or document rationale for non-use. PROCEDURE DATA STUDY STATUS: Elective. Procedure: Transthoracic echocardiography. Image quality was good. Scanning was performed from the parasternal, apical, and subcostal acoustic windows. Study completion: The patient tolerated the procedure well. Transthoracic echocardiography. M-mode, complete 2D, complete spectral Doppler, and color Doppler. Patient status: Inpatient. CARDIAC ANATOMY LEFT VENTRICLE: The cavity size was moderately dilated. Wall thickness was increased in a pattern of moderate LVH. Systolic function was moderately reduced. The estimated ejection fraction was 40%. Wall motion was normal; there were no regional wall motion abnormalities. AORTIC VALVE: Trileaflet; normal thickness leaflets. Doppler: Transvalvular velocity was within the normal range. There was no stenosis. Trace regurgitation. AORTA: Aortic root: The aortic root was moderately dilated. MITRAL VALVE: Structurally normal valve. Doppler: Transvalvular velocity was within the normal range. There was no evidence for stenosis. Mild regurgitation. Peak gradient: 5mm Hg (D). LEFT ATRIUM: The atrium was mildly to moderately dilated. RIGHT VENTRICLE: The cavity size was moderately dilated. Wall thickness was normal. PULMONIC VALVE: Doppler: Transvalvular velocity was within the normal range. There was no evidence for stenosis. No regurgitation. TRICUSPID VALVE: Structurally normal valve. Doppler: Transvalvular velocity was within the normal range. Moderate regurgitation. PULMONARY ARTERY: The main pulmonary artery was normal-sized. Systolic pressure was severely increased. RIGHT ATRIUM: The atrium was dilated. PERICARDIUM: There was no pericardial effusion. SYSTEMIC VEINS: Inferior vena cava: The vessel was normal in size. BASIC MEASUREMENTS ADULT Normal Left ventricle LV internal dimension, ED, chordal level, *70.4 mm 43-52 PLAX LV internal dimension, ES, chordal level, *59.6 mm 23-38 PLAX Fractional shortening, chordal level, PLAX *15 % >29 LV posterior wall thickness, ED 11.8 mm IVS/LVPW ratio, ED *1.36 <1.3 Ventricular septum Septal thickness, ED 16.1 mm Aortic valve Leaflet separation 26 mm 15-26 Left atrium Anterior-posterior dimension 49 mm Right ventricle RV internal dimension, ED, PLAX 36.6 mm 19-38 BASIC MEASUREMENTS ADULT Normal Aortic valve Leaflet separation 26 mm 15-26 Aorta Root diameter, ED *47 mm 20-37 Left atrium Anterior-posterior dimension, ES *48 mm 19-40 LA/aortic root ratio 1.02 DOPPLER MEASUREMENTS ADULT Normal Main pulmonary artery Pressure, S *80 mm Hg =30 Mitral valve Peak E-wave velocity 112 cm/s Peak A-wave velocity 48 cm/s Peak gradient, D 5 mm Hg Peak E/A ratio 2.3 Tricuspid valve Regurgitant peak velocity 417 cm/s Peak RV-RA gradient, S 70 mm Hg Maximal regurgitant velocity 417 cm/s Systemic veins Estimated CVP 10 mm Hg Right ventricle RV pressure, S *80 mm Hg <30 LEGEND: Mean values are shown as u=mean value. Asterisk (*) rodriguez values outside specified normal range. Prepared and signed by Ashly Agustin [id number]
[2016-12-07] VITALS (10 sets, daily range): BP systolic 141–155; BP diastolic 97–101; PULSE 85–91; RESP 18–22; TEMP 98.2–98.9; O2SAT 92–95
[2016-12-07] MEDS: PIPERACIL-TAZO 3.375 GM PREMIX 50 ML IV SCH (03:19)
[2016-12-07] MEDS: LORazepam 2 MG/ML VIAL IV PUSH PRN ×2 (03:25→09:10)
[2016-12-07 03:49] LABS: BACTERIA, URINE RARE /hpf; BLOOD, URINE MOD (NEG); GLUCOSE,URINE NEG (NEG); KETONE, URINE NEG (NEG); MUCUS URINE FEW /lpf (OCC); NITRITE,URINE NEG (NEG); URINE COLOR YELLOW (YELLW/STRAW)
[2016-12-07 03:50] LABS: COMMENT (UR) CATH-CULTURE IND; CULTURE IF INDICATED CATH CULTURE IND
[2016-12-07] MEDS: INSULIN ASPART SUPPLEMENTAL SCALE SQ SCH (06:27)
[2016-12-07 07:00] LABS: AUTOMATED NEUTROPHIL # 6.5 TH/MM3 (1.8-7.7); BASOPHIL # 0.1 TH/MM3 (0-0.2); BASOPHIL % 0.8 % (0.0-2.0); EOSINOPHIL # 0.1 TH/MM3 (0-0.4); EOSINOPHIL % 1.5 % (0.0-4.0); HEMATOCRIT 34.5 % (39.0-51.0); HEMO FLAGS DIFF FINAL; LYMPHOCYTE # 0.7 TH/MM3 (1.0-4.8); MEAN CELL VOLUME 82.1 FL (80.0-100.0); MEAN CORPUSCULAR HEMOGLOBIN 26.6 PG (27.0-34.0); MEAN CORPUSCULAR HGB CONC 32.4 % (32.0-36.0); MONO % 10.6 % (0.0-8.0); NEUT % 78.1 % (16.0-70.0); PLATELET COUNT 330 TH/MM3 (150-450); RED CELL DISTRIBUTION WIDTH 15.7 % (11.6-17.2); WHITE BLOOD COUNT 8.3 TH/MM3 (4.0-11.0)
[2016-12-07 07:30] LABS: BICARBONATE 29.5 MEQ/L (21.0-32.0); POTASSIUM 3.8 MEQ/L (3.5-5.1)
[2016-12-07] MEDS: RESP: ALBUTEROL 2.5 MG/IPRATROPIUM 0.5 MG NEB (SCH) NEB (07:43)
[2016-12-07] MEDS ORDERED: amLODIPine BESYLATE 5 MG TAB PO SCH (09:00)
[2016-12-07] MEDS: SODIUM CHLORIDE 0.9% FLUSH 5 ML FLUSH IVF SCH (09:20)
[2016-12-07] MEDS: HYDROCHLOROTHIAZIDE 12.5 MG CAP PO SCH (09:20)
[2016-12-07] MEDS: ASPIRIN 81 MG CHEW TAB PO SCH (09:20)
[2016-12-07] MEDS: THIAMINE HCL 100 MG TAB PO SCH (09:20)
[2016-12-07] MEDS: FUROSEMIDE 40 MG/4 ML VIAL IVP SCH (09:20)
[2016-12-07] MEDS: CARVEDILOL 12.5 MG TAB PO SCH (09:21)
[2016-12-07] MEDS: MULTIVITAMIN TAB PO SCH (09:21)
[2016-12-07] MEDS: POTASSIUM CHLORIDE 20 MEQ CONTROLLED RELEASE TAB PO SCH (09:22)
[2016-12-07] MEDS: LISINOPRIL 20 MG TAB PO SCH (09:22)
[2016-12-07] MEDS: FOLIC ACID 1 MG TAB PO SCH (09:22)
--- NOTE | 2016-12-07 09:57 | HHI.FPPN ---
Subjective Remarks Patient denies any headache, chest pain, shortness breath, abdominal pain, leg pain. He says his vision is more clear than usual. He reports normal bowel movements. His only complaint is the Saenz catheter, which he wants removed. Per nurse report, patient has been belligerent and throwing things at her. Objective Vitals Vital Signs Date Time Temp Pulse Resp B/P Pulse Ox O2 Delivery O2 Flow Rate FiO2 12/07/16 07:44 92 21 12/07/16 07:00 98.2 91 18 155/101 93 12/07/16 07:00 89 12/07/16 06:00 86 12/07/16 05:00 88 12/07/16 04:00 98.9 89 22 141/97 95 12/07/16 03:30 86 12/07/16 03:00 85 12/07/16 02:00 86 12/07/16 01:00 87 12/07/16 00:00 88 12/06/16 23:30 85 12/06/16 23:00 88 12/06/16 22:00 84 12/06/16 21:00 85 12/06/16 20:00 98.0 97 22 152/93 95 12/06/16 19:17 92 12/06/16 18:07 95 Nasal Cannula 2.00 12/06/16 18:01 99 12/06/16 17:25 96 12/06/16 16:19 91 12/06/16 15:33 92 12/06/16 15:33 97.7 92 20 134/85 92 12/06/16 14:01 95 12/06/16 13:07 90 12/06/16 12:03 87 12/06/16 11:53 97.6 91 20 121/73 92 12/06/16 11:53 91 12/06/16 11:18 90 12/06/16 10:16 90 I/O 12/06/16 12/06/16 12/06/16 12/07/16 12/07/16 12/07/16 07:00 15:00 23:00 07:00 15:00 23:00 Intake Total 480 ml 1490 ml 360 ml Output Total 1000 ml 4000 ml 2375 ml Balance -520 ml -2510 ml -2015 ml Intake Oral 480 ml 1080 ml 360 ml IV Total 410 ml Output Urine Total 1000 ml 4000 ml 2375 ml # Bowel Movements 0 1 Result Diagram: 12/07/16 0455 12/07/16 0455 Imaging Last Impressions Chest X-Ray 12/05/16 1735 Signed Impressions: Service Date/Time: Monday, December 05, 2016 17:33 - CONCLUSION: Compensated cardiomegaly without evidence of pulmonary edema or focal infiltrate. Toñito Kam MD CT Angiography 12/05/16 0000 Signed Impressions: Service Date/Time: Monday, December 05, 2016 19:16 - CONCLUSION: 1. Negative for pulmonary embolism in the main, left, and right pulmonary artery. There is insufficient opacification for evaluation of the smaller pulmonary vessels. 2. 8mm pulmonary nodule right midlung is unchanged from prior CT in October 2015. Given the size, Fleischner society recommends continued followup with one more CT scan in 12 months. 3. Small right pleural effusion and patchy areas of infiltrate in the perihilar and lower lateral left lung. Toñito Kam MD Objective Remarks GENERAL: Disheveled, somnolent Afro-Mongolian male, sitting up in bed in no obvious distress. He is significantly lethargic and difficult to understand due to mumbling. Falls asleep multiple times during discussion this morning. Requires a lot of stimulation in order to stay focused on the conversation. SKIN: Scabs and tattoos on extremities BL. Cool and dry. well healing scab posterior of right shoulder. Right distal medial thigh with 2 cm x 4 cm area of erythema that is tender to palpation and indurated, area does feel warm to the touch, no fluctuance palpated. HEAD: Atraumatic. Normocephalic. EYES: Pupils equal round and reactive. ENT: MMM. Nose without bleeding, purulent drainage. Airway patent. NECK: Trachea midline. + JVD but no lymphadenopathy. Supple, nontender, no meningeal signs. CARDIOVASCULAR: Tachycardic rate and rhythm with grade 2/6 systolic murmur. RESPIRATORY: Mostly clear to auscultation with scattered wheezes in bilateral bases, and decreased breath sounds at right lung base. No obvious crackles or rhonchi. GASTROINTESTINAL: Abdomen soft, nontender, nondistended MUSCULOSKELETAL: Extremities without clubbing, cyanosis, 2+ edema to mid parks bilaterally. No calf tenderness. No foot ulcers. NEUROLOGICAL: Somnolent, momentary arousal to his name. Garbled/mumbled speech. A/P Assessment and Plan Per chart review, pt is a 51-year-old male with a past medical history of hypertension, congestive heart failure, nonischemic cardiomyopathy with ejection fraction 30-35% and polysubstance abuse, including cocaine, who presents to emergency department for evaluation of chest pain and worsening shortness of breath with ambulation. Patient found to have BNP of 1767, imaging concerning for acute on chronic CHF exacerbation versus pneumonia, hypertensive urgency with a blood pressure of 180s over 120s on admission exam, elevated troponin to 0.34, which is lower than his troponins from previous admissions. Patient also found to have cellulitis on the right medial thigh. Patient is admitted for IV diuresis, blood pressure control, and antibiotics. Problem List: (1) Hypertensive urgency Status: Acute Plan: Home medications were restarted this morning and will be titrated as below: Amlodipine increased from 5 mg to 10 mg yesterday Carvedilol 25 mg twice a day Lisinopril 40 mg by mouth daily Hydrochlorothiazide 12.5 mg daily added yesterday Patient also being diuresed with Lasix 40 mg IV twice a day given symptoms of congestive heart failure Blood pressure remains elevated, if changes above do not achieve blood pressure goal, consider starting hydralazine scheduled 3 times a day (2) CHF (congestive heart failure) Status: Acute Plan: Likely secondary to acute hypertensive urgency and recent cocaine use associated with chest pain on chronic hypertensive versus polysubstance abuse cardiomyopathy BNP elevated at 1767 Echocardiogram ordered Diuresis with Lasix 40 mg IV twice a day -Monitor is/os with Saenz catheter. Plan to remove Saenz catheter today because patient is intolerant, attempting to pull it out, and is no longer experiencing acute CHF symptoms. Daily fluid restriction to 1.5 L Low-salt diet/heart healthy diet ACS workup with constant/chronic elevation of troponin at 0.35 No acute EKG changes or events on telemetry Continue medications including carvedilol, lisinopril, and Lasix Supplemental oxygen as needed and wean as tolerated (3) Pneumonia Status: Acute Plan: Patient with clinical symptoms including shortness of breath along with pulmonary infiltrate found on CT No systemic symptoms such as fevers or leukocytosis Treatment currently with broad-spectrum antibiotics to cover for possible healthcare associated pneumonia as patient has been in the hospital several times over the last 3 months - Vancomycin - Zosyn - Azithromycin Blood cultures ordered and pending Supplemental oxygen as needed and wean as tolerated Duo nebs breathing treatments as needed every 4 hours (4) Cellulitis Status: Acute Plan: Cellulitis with erythema and induration of distal right medial thigh No obvious area of fluctuance to be drained Blood cultures have been drawn and are pending Warm compresses to the right thigh Continue antibiotic management as above for pneumonia (5) JEN (acute kidney injury) Status: Acute Plan: Patient presents with a creatinine of 1.37 on arrival Renal function improved with a creatinine of 1.28 with diuresis - Continue diuresis as above - Avoid IV fluids due to volume status of overload - Avoid nephrotoxic agents (6) Altered mental status, unspecified Status: Acute Plan: Patient with history of polysubstance abuse currently with altered mental status on exam after receiving Ativan for chest pain in the context of cocaine use. Urine drug screen Alcohol/ethanol level [facility] protocol ordered (7) Elevated troponin Status: Chronic Plan: Per chart review, patient previously presented to emergency department with troponin ranging between 0.61 - 0.85. Initial troponin this visit, 0.34 and trend was stable ACS rule out negative for active ischemia (8) DM (diabetes mellitus) Status: Chronic Plan: Per chart review, patient with history of diabetes. Low-dose sliding scale insulin with glucose monitoring (9) COPD (chronic obstructive pulmonary disease) Status: Chronic Plan: Per chart review, patient with history of COPD. DuoNeb's every 4 hours while awake (10) Cocaine abuse Status: Chronic Plan: Patient received Ativan and nitroglycerin for chest pain in the context of cocaine use, which seemed to have resolved his chest pain. Patient receiving Ativan from [facility] protocol Continuing home medication of carvedilol as it is a nonselective beta nathan/ alpha-1 nathan Case management consult (11) Alcohol abuse Status: Chronic Plan: Per chart review, patient has history of alcohol abuse. Ethyl alcohol level 4 on arrival Started on [facility] protocol. Thiamine, folate, multivitamin Case management consult (12) Nutrition, metabolism, and development symptoms Status: Acute Plan: Fluids: Fluid restrict given history of CHF with fluid overloaded status on exam Electrolytes: Monitor and replete as necessary Nutrition: Heart healthy diet with fluid restriction less than 1.5 L and salt restriction less than 2 g GI prophylaxis: Not currently indicated at this time (13) No contraindication to deep vein thrombosis (DVT) prophylaxis Status: Acute Plan: Bilateral knee-high SCDs/TEDs No chemical anticoagulation at this time given high fall risk and patient is moving all extremities well Problem Qualifiers (1) CHF (congestive heart failure): Qualified Code: I50.9 - Acute on chronic congestive heart failure, unspecified congestive heart failure type (2) Pneumonia: Qualified Code: J18.1 - Pneumonia of left lower lobe due to infectious organism (3) Cellulitis: Qualified Code: L03.115 - Cellulitis of right lower extremity Ivan Avalos MD R1 Dec 07, 2016 09:57
--- NOTE | 2016-12-07 10:19 | PD.AMA ---
Against Medical Advice Note Discharge Disposition: Against Medical Advice Pt Condition on Discharge: Stable AMA Statement Patient Toñito Haji has decided to leave the hospital against medical advice. This patient has the capacity to refuse care and understands the risks of leaving, including permanent disability and/or , and has had an opportunity to ask questions about his condition. The patient has been informed that he may return for care at any time. He will not be accepted to the family medicine residency service. Lizeth Arcos MD R2 Dec 07, 2016 10:19
[2016-12-07] MEDS ORDERED: PHARMACY ORDERED LAB XX ONE (10:45)
== END 2016-12-07 09:59 | disposition left against medical advice (07) | DRG 304 ==
LOC: NEPA 17:27 → NEDA 19:40 → HCIS 12-06 02:06
PROVIDERS: ADMIT Family Medicine; ATTEND Family Medicine
DX: I16.0 Hypertensive urgency (principal); J44.0 Chronic obstructive pulmonary disease with (acute) lower respiratory infection; J18.9 Pneumonia, unspecified organism; N17.9 Acute kidney failure, unspecified; I42.9 Cardiomyopathy, unspecified; I50.9 Heart failure, unspecified; L03.115 Cellulitis of right lower limb; R07.9 Chest pain, unspecified; I10 Essential (primary) hypertension; F14.10 Cocaine abuse, uncomplicated; R41.82 Altered mental status, unspecified; R74.8 Abnormal levels of other serum enzymes; Z91.14 Patient's other noncompliance with medication regimen; E11.9 Type 2 diabetes mellitus without complications; F32.9 Major depressive disorder, single episode, unspecified; F17.210 Nicotine dependence, cigarettes, uncomplicated; F10.10 Alcohol abuse, uncomplicated; Z86.73 Personal history of transient ischemic attack (TIA), and cerebral infarction without residual deficits; Z79.82 Long term (current) use of aspirin; R51 Headache; R91.1 Solitary pulmonary nodule
CPT/HCPCS: 36600; 71010; 71275; 80048; 80053; 80307; 80320; 81001; 82550; 82552; 82805; 82948; 83605; 83690; 83735; 83880; 84100; 84484; 85025; 85610; 85730; 87040; 87086; 93005; 93306; 94640; 94664; 96374; J1940; J2060; J2543; J3370; J7030; J7050; Q9967

== ENCOUNTER 2016-12-23 11:05 | Emergency (ER) | payer MEDICAID, OTHER ==
[~2016-12-23] VITALS: Ht 180.3 cm; Wt 75.0 kg
[2016-12-23 11:07] VITALS: BP 168/109; PULSE 93; RESP 14; TEMP 97.9; O2SAT 100
[2016-12-23 13:24] LABS: AUTOMATED NEUTROPHIL # 3.2 TH/MM3 (1.8-7.7); BASOPHIL % 0.5 % (0.0-2.0); EOSINOPHIL # 0.1 TH/MM3 (0-0.4); EOSINOPHIL % 2.2 % (0.0-4.0); HEMO FLAGS DIFF FINAL; LYMPH % 19.1 % (9.0-44.0); LYMPHOCYTE # 0.9 TH/MM3 (1.0-4.8); MEAN CELL VOLUME 79.6 FL (80.0-100.0); MEAN CORPUSCULAR HEMOGLOBIN 25.9 PG (27.0-34.0); MEAN CORPUSCULAR HGB CONC 32.5 % (32.0-36.0); MONO % 10.2 % (0.0-8.0); PLATELET COUNT 249 TH/MM3 (150-450); RED BLOOD COUNT 4.65 MIL/MM3 (4.50-5.90); RED CELL DISTRIBUTION WIDTH 16.7 % (11.6-17.2); WHITE BLOOD COUNT 4.7 TH/MM3 (4.0-11.0)
[2016-12-23 13:41] LABS: BICARBONATE 25.1 MEQ/L (21.0-32.0); POTASSIUM 4.1 MEQ/L (3.5-5.1)
[2016-12-23 13:58] LABS: CKMB 5.4 NG/ML (0.5-3.6)
--- NOTE | 2016-12-23 15:41 | PD ---
HPI Chief Complaint: Chest Pain Time Seen by Provider: 15:29 Travel History International Travel<30 days: No Contact w/Intl Traveler<30days: No Traveled to known affect area: No History of Present Illness HPI This is a 51-year-old male with a history of nonischemic cardiomyopathy and cocaine abuse who presents to the emergency department reporting that he's been increasingly short of breath over the past week, constant, worse with exertion, improved with rest associated with increasing swelling in his legs. He is not currently on any diuretics because he says he can't afford it. He recently was admitted to the hospital and he says that they put a catheter in and got some fluid out and that made him feel 100% better. He says his symptoms of been worsening since then. He is not really having any chest pain he is more concerned that the shortness of breath. Last time he was admitted to the hospital he left AGAINST MEDICAL ADVICE. He admits that he doesn't like to be admitted to the hospital he just wants to feel better. PFSH Past Medical History Hx Anticoagulant Therapy: Yes (PT STATES DOES NOT TAKE EVERY DAY) Asthma: No Blood Disorders: No Heart Rhythm Problems: No Cancer: No Cardiovascular Problems: Yes High Cholesterol: No Chemotherapy: No Chest Pain: No Congestive Heart Failure: Yes COPD: Yes Cerebrovascular Accident: Yes (CVA 2015) Diabetes: Yes Diminished Hearing: No Endocrine: No Gastrointestinal Disorders: No Genitourinary: No Hypertension: Yes Immune Disorder: No Musculoskeletal: No Neurologic: No Psychiatric: Yes (DRUG ABUSE) Reproductive: No Respiratory: Yes Immunizations Current: No (UNKNOWN) Myocardial Infarction: No Radiation Therapy: No Past Surgical History AICD: No Arteriovenous Shunt: No Insulin Pump: No Joint Replacement: No Pacemaker: No Tonsillectomy: Yes Other Surgery: Yes (RIGHT WRIST FOR SPIDER BITE.) Social History Alcohol Use: Yes Tobacco Use: Yes (11/09 PPD) Substance Use: Yes (Cocaine and Marijuana ) Allergies-Medications (Allergen,Severity, Reaction): Coded Allergies: No Known Allergies (Verified , 12/23/16) Reported Meds & Prescriptions Reported Meds & Active Scripts Active Potassium Chloride ER (Potassium Chloride) 20 Meq Tab 20 Meq PO DAILY Lasix (Furosemide) 20 Mg Tab 20 Mg PO DAILY Lisinopril 20 Mg Tab 40 Mg PO DAILY 30 Days Coreg (Carvedilol) 12.5 Mg Tab 25 Mg PO Q12HR 30 Days Norvasc (Amlodipine Besylate) 5 Mg Tab 5 Mg PO DAILY 30 Days Reported Aspirin Children's (Aspirin) 81 Mg Chew 81 Mg CHEW DAILY Review of Systems Except as stated in HPI: all other systems reviewed are Neg Physical Exam Narrative GENERAL:Well appearing, no acute distress SKIN: Warm and dry. HEAD: Atraumatic. Normocephalic. EYES: Pupils equal and round. No injection or drainage. ENT: Moist mucous membranes NECK: Trachea midline. CARDIOVASCULAR: Regular rate and rhythm. No murmur appreciated. 2+ bilateral pitting edema in the lower extremities RESPIRATORY: Clear to auscultation. Breath sounds equal bilaterally. GASTROINTESTINAL: Abdomen soft, non-tender, nondistended. MUSCULOSKELETAL: No obvious deformities. NEUROLOGICAL: Awake and alert. No obvious cranial nerve deficits. Moving all extremities. PSYCHIATRIC: Appropriate mood and affect; insight and judgment normal. Data Data Last Documented VS Vital Signs Date Time Temp Pulse Resp B/P Pulse Ox O2 Delivery O2 Flow Rate FiO2 12/23/16 15:50 100 18 146/99 97 Room Air 12/23/16 11:07 97.9 Orders Electrocardiogram (12/23/16 12:06) Complete Blood Count With Diff (12/23/16 12:06) Basic Metabolic Panel (Bmp) (12/23/16 12:06) Ckmb (Isoenzyme) Profile (12/23/16 12:06) Troponin I (12/23/16 12:06) CKMB (12/23/16 13:02) CKMB% (12/23/16 13:02) B-Type Natriuretic Peptide (12/23/16 15:38) Chest, Single Ap (12/23/16 ) Furosemide Inj (Lasix Inj) (12/23/16 15:45) Hydralazine Inj (Apresoline Inj) (12/23/16 16:45) Labs Laboratory Tests Test 12/23/16 12/23/16 13:02 15:50 White Blood Count 4.7 TH/MM3 Red Blood Count 4.65 MIL/MM3 Hemoglobin 12.0 GM/DL Hematocrit 37.0 % Mean Corpuscular Volume 79.6 FL Mean Corpuscular Hemoglobin 25.9 PG Mean Corpuscular Hemoglobin 32.5 % Concent Red Cell Distribution Width 16.7 % Platelet Count 249 TH/MM3 Mean Platelet Volume 8.2 FL Neutrophils (%) (Auto) 68.0 % Lymphocytes (%) (Auto) 19.1 % Monocytes (%) (Auto) 10.2 % Eosinophils (%) (Auto) 2.2 % Basophils (%) (Auto) 0.5 % Neutrophils # (Auto) 3.2 TH/MM3 Lymphocytes # (Auto) 0.9 TH/MM3 Monocytes # (Auto) 0.5 TH/MM3 Eosinophils # (Auto) 0.1 TH/MM3 Basophils # (Auto) 0.0 TH/MM3 CBC Comment DIFF FINAL Differential Comment Sodium Level 141 MEQ/L Potassium Level 4.1 MEQ/L Chloride Level 109 MEQ/L Carbon Dioxide Level 25.1 MEQ/L Anion Gap 7 MEQ/L Blood Urea Nitrogen 13 MG/DL Creatinine 1.35 MG/DL Estimat Glomerular Filtration 68 ML/MIN Rate Random Glucose 102 MG/DL Calcium Level 8.0 MG/DL Total Creatine Kinase 683 U/L Creatine Kinase MB 5.4 NG/ML Creatine Kinase MB % 0.8 % Troponin I 0.37 NG/ML B-Type Natriuretic Peptide 1235 PG/ML MDM Medical Decision Making Medical Screen Exam Complete: Yes Emergency Medical Condition: Yes Medical Record Reviewed: Yes (patient has been admitted to the hospital multiple times in the setting of hypertensive urgency. He has a history of nonischemic cardiomyopathy and cocaine abuse.) Interpretation(s) EKG: Normal sinus rhythm with deep ST depressions and T-wave inversions in the lateral leads which are unchanged from prior EKG. Mild anemia GFR 68 Troponin is 0.37 which is similar to the patient's baseline BNP is 1235 Differential Diagnosis Acute coronary syndrome, congestive heart failure, aortic dissection, hypertensive emergency Narrative Course This is a 51-year-old male who has a history of nonischemic cardiomyopathy in the setting of cocaine abuse who presents to the emergency department with progressive increasing shortness of breath and lower extremity edema. He denies any chest pain. He was placed on a monitor and an IV was established. He was hypertensive. He was given 20 mg of IV hydralazine. His symptoms and physical exam are consistent with congestive heart failure. His BNP is 1235. He was given a dose of 40 mg of IV Lasix. He doesn't take Lasix routinely at home because he says he can't afford it. His troponin is elevated but is at his baseline, consistent with his troponin throughout his hospitalization in November. I had a long conversation with the patient. He doesn't like to stay in the hospital and he routinely leaves AGAINST MEDICAL ADVICE about 12 or 24 hours after he is admitted. He really just wants to feel better with his shortness of breath. I think it's reasonable to give him a dose of IV Lasix and write him a prescription for Lasix. He doesn't want to stay in the hospital and he has had multiple stays for these same symptoms in the past. The patient Was discharged home. Diagnosis Primary Impression: CHF (congestive heart failure) Qualified Code: I50.9 - Acute on chronic congestive heart failure, unspecified congestive heart failure type Patient Instructions: General Instructions Additional Instructions: If you develop severe chest pain, shortness of breath, sweating, lightheadedness , dizziness or difficulty breathing return to the emergency department immediately. Followup with your primary care physician in 2-3 days if your symptoms are not resolved. Med/Other Pt SpecificInfo: Prescription(s) given Scripts Potassium Chloride ER 20 Meq Tab20 Meq PO DAILY #30 TAB Ref 0 Prov:Jennifer Hewitt MD 12/23/16 Furosemide (Lasix)20 Mg Tab20 Mg PO DAILY #30 TAB Ref 0 Prov:Jennifer Hewitt MD 12/23/16 Disposition: 01 DISCHARGE HOME Condition: Stable Jennifer Hewitt MD Dec 23, 2016 15:41
[2016-12-23] MEDS ORDERED: FUROSEMIDE 40 MG/4 ML VIAL IV PUSH ONE (15:45)
[2016-12-23 15:50] VITALS: BP 146/99; PULSE 100; RESP 18; O2SAT 97
[2016-12-23] MEDS ORDERED: ASPI81CH7 CHEW (16:03)
--- NOTE | 2016-12-23 16:05 | RADRPT ---
EXAM DATE/TIME: 12/23/2016 15:54 [facility] COMPARISON: CHEST SINGLE AP, December 05, 2016, 17:33. INDICATIONS : Shortness of breath and chest pain. MEDICAL HISTORY : Cardiomegaly SURGICAL HISTORY : None. ENCOUNTER: Initial ACUITY: 1 day PAIN SCORE: 7/10 LOCATION: chest FINDINGS: A single view of the chest demonstrates the lungs to be symmetrically aerated without evidence of mas s, infiltrate or effusion. The heart size remains enlarged with globular configuration. Osseous stru ctures are intact. CONCLUSION: Stable appearance with cardiomegaly and no evidence of pulmonary edema. Ivan Sanchez MD on December 23, 2016 at 16:03 Board Certified Radiologist. This report was verified electronically.
[2016-12-23] MEDS ORDERED: hydrALAZINE HCL 20 MG/ML VIAL IV PUSH ONE (16:45)
[2016-12-23 16:50] VITALS: BP 174/116; PULSE 96; RESP 18; O2SAT 98
[2016-12-23] MEDS ORDERED: POTA-163 PO (16:51)
[2016-12-23] MEDS ORDERED: FURO1TAB62 PO (16:51)
[2016-12-23 17:50] VITALS: BP 170/90; PULSE 95; RESP 18; O2SAT 98
--- NOTE | 2016-12-24 11:22 | EKG ---
Date Performed: 12/23/2016 Time Performed: 12:55:44 PTAGE: 51 years EKG: SINUS TACHYCARDIA LEFT ATRIAL ENLARGEMENT MARKED LEFT AXIS DEVIATION LEFT VENTRICULAR HYPER TROPHY AND ST-T CHANGE ANTERIOR T WAVE ABNORMALITY, POSSIBLE ISCHEMIA ABNORMAL ECG PREVIOUS TRACING : 12/05/2016 23.46 DOCTOR: Ramsey Ferraro Interpretating Date/Time 12/24/2016 11:20:26
== END 2016-12-23 18:12 | disposition home or self-care (01) ==
LOC: NEPE 11:05
DX: I50.9 Heart failure, unspecified (principal); I42.9 Cardiomyopathy, unspecified; J44.9 Chronic obstructive pulmonary disease, unspecified; E11.9 Type 2 diabetes mellitus without complications; I10 Essential (primary) hypertension; F17.210 Nicotine dependence, cigarettes, uncomplicated; F14.10 Cocaine abuse, uncomplicated; R94.31 Abnormal electrocardiogram [ECG] [EKG]; F12.90 Cannabis use, unspecified, uncomplicated; Z86.73 Personal history of transient ischemic attack (TIA), and cerebral infarction without residual deficits
CPT/HCPCS: 71010; 80048; 82550; 82552; 83880; 84484; 85025; 93005; 96374; 96375; 99285; J0360; J1940